=== PATIENT | female | born 1985 | race Caucasian/White ===

== ENCOUNTER 2017-06-26 08:14 | Outpatient (CLI) | payer BC ==
[2017-06-26 10:18] LABS: #Basophils 0.1 thou/uL (0.0-0.2); #Eosinphils 0.1 thou/uL (0.0-0.7); #Lymphocytes 2.9 thou/uL (1.20-3.40); #Monocytes 0.5 thou/uL (0.11-0.59); #Neutrophils 5.5 thou/uL (1.40-6.50); %Basophils 1.2 % (0.0-1.0); %Eosinophils 0.8 % (0.0-10.0); %Lymphocytes 31.8 % (21.0-51.0); %Monocytes 5.7 % (0.0-10.0); Hematocrit 44.6 % (36.0-47.0); Mean Platelet Volume 6.6 fL (7.4-10.4); White Blood Cell (WBC) Count 9.2 thou/uL (4.8-10.8)
[2017-06-26 10:32] LABS: ALT (SGPT) 21 U/L (8-55); AST (SGOT) 16 U/L (5-34); Alkaline Phosphatase 75 U/L (40-150); Anion Gap 9 mmol/L (10-20); BUN (Urea Nitrogen) 11 mg/dL (7.0-18.7); Bilirubin, Total 0.4 mg/dL (0.2-1.2); Calc. Creatinine Clearance 0 mL/min (70-130); Calcium 9.7 mg/dL (7.8-10.44); Carbon Dioxide 29 mmol/L (22-29); Chloride 105 mmol/L (98-107); Estimated GFR-MDRD Greater than 90; Globulin 3.7 g/dL (2.4-3.5); Protein, Total 7.9 g/dL (6.0-8.3)
== END 2017-06-26 08:15 | disposition home or self-care (01) ==
LOC: LABBT 08:14
PROVIDERS: ATTEND Specialist
DX: Z01.812 Encounter for preprocedural laboratory examination (principal); K80.10 Calculus of gallbladder with chronic cholecystitis without obstruction
CPT/HCPCS: 80053; 84703; 85025

== ENCOUNTER 2017-07-04 06:05 | Day surgery (SDC) | payer BC ==
--- NOTE | 2017-06-25 06:30 | HP ---
HISTORY OF PRESENT ILLNESS: Lady Soler is a 31-year-old female, referred by Dr. Alvarez. The p atient has symptomatic gallstones, scheduled for laparoscopic cholecystectomy on 07/04. She has had persistent nausea and episodes of right upper quadrant pain, epigastric pain with radiation to her right flank. She has suffered nausea and vomiting. It has been going on for several months. [facility] ultrasound, 01/01/2017, reveals gallstones with normal bile duct caliber. The patient is tired of the symptoms and desires cholecystectomy. She understands the risk of infec tion, bleeding, visceral and biliary injury, open procedure and consents. FAMILY HISTORY: Diabetes, hypertension. Grandmother with breast cancer. PAST SURGICAL HISTORY: None. PAST MEDICAL HISTORY: Noncontributory. REVIEW OF SYSTEMS: Ten point noncontributory. ALLERGIES: None. TOBACCO: None. ALCOHOL: None. PHYSICAL EXAMINATION: VITAL SIGNS: 147/81, 101 heart rate, 99.7 degrees, 30 BMI, 63 inches, 169 pounds. HEENT: Unremarkable. Sclerae nonicteric. SKIN: Not jaundiced. AXILLA, GROINS, NECK: Without lymphadenopathy, neurologically intact. LUNGS: Clear to auscultation. CARDIAC: Regular rate and rhythm without murmur or gallop. ABDOMEN: Soft. Mild tenderness in the right upper quadrant. No guarding or rebound. EXTREMITIES: Unremarkable. ASSESSMENT AND PLAN: Chronic cholecystitis and cholelithiasis. Recommend laparoscopic video cholec ystectomy. Risk of infection, bleeding, visceral and biliary injury and open procedure discussed. Questions answered. We will proceed with laparoscopic cholecystectomy.
[2017-06-26 08:45] VITALS: BMI 29.9
[2017-07-04] MEDS ORDERED: Ketorolac Tromethamine 30 MG/ML VIAL ONE (06:46)
[2017-07-04] MEDS ORDERED: CEFAZOLIN/Water 2 GM/20 ML SYRINGE ONE (06:46)
[2017-07-04] MEDS ORDERED: Lidocaine 2% w/Epinephrine 1:200K 20 ML VIAL ONE (06:58)
[2017-07-04] MEDS ORDERED: Bupivacaine PF 0.5% 30 ML VIAL ONE (06:58)
[2017-07-04] MEDS ORDERED: Fentanyl 250 MCG/5 ML VIAL ONE (07:07)
[2017-07-04] MEDS ORDERED: Glycopyrrolate 0.2 MG/ML 5 ML SYRINGE ONE (07:51)
[2017-07-04] MEDS ORDERED: Propofol 200 MG/20 ML VIAL ONE (07:51)
[2017-07-04] MEDS ORDERED: Ondansetron HCl/PF 4 MG/2 ML Vial ONE (07:51)
[2017-07-04] MEDS ORDERED: Dexamethasone 20 MG/5 ML VIAL ONE (07:51)
[2017-07-04] MEDS ORDERED: PHENYLEPHRINE-NS 100 MCG/ML 10 ML SYRINGE ONE (07:51)
[2017-07-04] MEDS ORDERED: Lidocaine 1% PF 5 ML VIAL ONE (07:51)
[2017-07-04] MEDS ORDERED: Meperidine HCl/PF 25 MG/ML VIAL ONE (08:48)
--- NOTE | 2017-07-04 09:48 | OP ---
DATE OF PROCEDURE: 07/04/2017 PREOPERATIVE DIAGNOSIS: Chronic cholecystitis, cholelithiasis. POSTOPERATIVE DIAGNOSIS: Chronic cholecystitis, cholelithiasis. PROCEDURE: Laparoscopic video cholecystectomy. SURGEON: Dr. Uriel Jarvis ANESTHESIA: General. Local 0.5% Marcaine, 30 mL, mixed with 2% Xylocaine with epinephrine 10 mL. PROCEDURE IN DETAIL: The patient was taken to the operating room where under general anesthesia, ab michael was prepared with ChloraPrep, draped in routine fashion. Local anesthetic infiltrated into sk in and subcutaneous tissue about each port site. Infraumbilical incision made and pneumoperitoneum to 15 mmHg obtained with the Veress needle, replacing it with a 5 port and laparoscope inserted. Ri ght subxiphoid incision made and 11 port placed. Right subcostal incision made mid clavicular anter ior axillary lines and 5 ports placed. Fundus of gallbladder grasped and reflected cephalad. Liver appeared to be normal. Infundibulum grasped and reflected laterally. Cystic artery and duct disse cted free. Critical view obtained. Cystic artery and duct doubly clipped proximally and divided an d gallbladder dissected free from the liver attachments using cautery, obtaining good hemostasis gwendolyn or to division of final peritoneal attachments. Gallbladder and contents removed and submitted to P athology. Good hemostasis assured as irrigant and pneumoperitoneum evacuated. All instruments aleksandra adalid and all skin incisions approximated with interrupted subdermal 4-0 Monocryl and DermaGlue gareth ray
[2017-07-04] MEDS ORDERED: Promethazine HCl 25 MG/ML VIAL ONE (10:15)
== END 2017-07-04 12:10 | disposition home or self-care (01) ==
LOC: SDC 06:05
PROVIDERS: ATTEND Specialist
PROC: 0FT44ZZ Resection of Gallbladder, Percutaneous Endoscopic Approach (ICD-10-PCS; principal; 2017-07-04)
DX: K80.10 Calculus of gallbladder with chronic cholecystitis without obstruction (principal); Z79.899 Other long term (current) drug therapy
CPT/HCPCS: 88304; J0131; J1100; J1885; J2001; J2175; J2405; J2550; J2704; J3010; S0020

== ENCOUNTER 2025-04-12 08:08 | Outpatient (CLI) | payer BC | END 2025-04-12 08:09 | disposition home or self-care (01) | LOC: NM 08:08 | PROVIDERS: ATTEND Specialist | DX: E21.3 Hyperparathyroidism, unspecified (principal) | CPT/HCPCS: 78072; A9500 ==

== ENCOUNTER 2025-08-01 11:40 | Outpatient (CLI) | payer BC | END 2025-08-01 11:41 | disposition home or self-care (01) | LOC: BICRAD 11:40 | PROVIDERS: ATTEND Urology | DX: N20.1 Calculus of ureter (principal); R19.5 Other fecal abnormalities; Z97.5 Presence of (intrauterine) contraceptive device | CPT/HCPCS: 74018 ==

== ENCOUNTER 2025-08-04 10:03 | Outpatient (CLI) | payer BC | END 2025-08-04 10:04 | disposition home or self-care (01) | LOC: ULT 10:03 | PROVIDERS: ATTEND Urology | DX: N20.2 Calculus of kidney with calculus of ureter (principal); N28.89 Other specified disorders of kidney and ureter; N28.1 Cyst of kidney, acquired | CPT/HCPCS: 76770 ==